=== PATIENT | male | born 1950 | race Caucasian/White ===

== ENCOUNTER → 2016-09-19 | Outpatient (CLI) | payer MEDICARE, BC ==
--- NOTE | 2016-09-19 08:47 | RADRPT ---
PROCEDURE: Ultrasound of the abdomen and retroperitoneum. CLINICAL INDICATION: Abdominal pain TECHNIQUE: Multiple real-time longitudinal and transverse images of the abdomen were acquired util izing a curved array transducer. Images were reviewed on a high-resolution PACS workstation. COMPARISON: None FINDINGS: The liver is normal in size, shape, and echogenicity. No hepatic masses are seen. There is no evide nce of intra or extrahepatic ductal dilatation. The common bile duct measures 3.8 mm in maximal dim ension. No gallstones or gallbladder wall thickening is seen. The visualized portions of the pancreas are unremarkable with obscuration of the tail of the pancrea s. No free fluid is identified. The spleen is normal and measures 8.1 cm. The kidneys are without calcifications or hydronephrosis. The right kidney measures 9.6 cm, and th e left kidney measures 9.6 cm. The visualized portions of the aorta and inferior vena cava are unremarkable. IMPRESSION: 1. Unremarkable ultrasound examination of the abdomen and retroperitoneum . RPTAT: KK .Tera Weems MD, MD Date Time Electronically viewed and signed by .Tera Weems MD, MD on 09/19/2016 08:47 .B/
== END | disposition home or self-care (01) ==
LOC: U/S 07:40
PROVIDERS: ATTEND Internal Medicine Gastroenterology
DX: R10.9 Unspecified abdominal pain (principal)
CPT/HCPCS: 76700